=== PATIENT | male | born 1970 | race Caucasian/White ===

== ENCOUNTER → 2018-10-12 | Outpatient (CLI) | payer OTHER ==
--- NOTE | ~2018-10-12 | PFR/MVV ---
[facility] [place] [address] PULMONARY FUNCTION MVV/REPORT Name: DANIEL RENAEG Room #: [facility].#: [id number] Admission: 10/12/18 Attend Phys: Juan Gamino MD Discharge: Date of : 74 Report #: [id number] THIS REPORT FOR: //name// >> SPIROMETRY: (BTPS) Height: in cm Weight: lbs kg Exam Date: PRE-RX POST-RX PRED BEST %PRED BEST %PRED %CHG FVC LITERS . . . . . . FEV1 LITERS . . . . . . FEV1/FVC % . . . . . . YOK56-25% L/Sec . . . . . . PEF L/SEC . . . . . . FEF50/FIF50 UNITLESS . . . . . . MVV L/Min . . . f 1/Min . . . >> LUNG VOLUMES: (BTPS) PRE-RX POST-RX PRED AVG %PRED AVG %PRED %CHG VC Liters . . . . . . TLC Liters . . . . . . RV Liters . . . . . . RV/TLC % . . . . . . FRC PL Liters . . . . . . FRC N2 Liters . . . . . . ERV Liters . . . . . . IC Liters . . . . . . >> DIFFUSION: DLCO ml/Min/mmHg . . . . . . DL Larisa ml/Min/mmHg . . . . . . DLCO/VA ml/Min/mmHg . . . . . . VA Liters . . . . . . COMMENTS: COMMENTS: >> RESISTANCE: [facility] [address] [place] [address] PULMONARY FUNCTION MVV/REPORT Name: SHANE RENAE Room #: SAGE SimsZackary#: [id number] Admission: 10/12/18 Attend Phys: Juan Gamino MD Discharge: Date of : 74 Report #: [id number] PRE-RX PRED AVG %PRED Raw Total cmH20/L/Sec . . . Raw Insp cmH20/L/Sec . . . Raw Exp cmH20/L/Sec . . . Raw cmH20/L/Sec . . . Gaw L/Sec/cmH20 . . . sRaw cmH20 Sec . . . sGaw l/cmH20 Sec . . . Vtq Liters . . . # = OUTSIDE 95% CONFIDENCE INTERVAL CALIBRATION: PRED: 3.00 ACTUAL: EXP 3.01 INSP 3.02 IPS-OL10 [facility]-- [id number] >> INTERPRETATION/IMPRESSION: CC: Juan Gamino FAM unknown ROSA PATRICIA SPIROMETRY: FEV1 is 3.59 liters (99%), FVC is 5.34 liters (111%), FEV1/FVC is 67%. Postbronchodilator therapy with no significant change. LUNG VOLUMES: Total lung capacity is 7.20 liters (109%). RV is 1.86 liters (90%). Diffusing capacity is 70%. IMPRESSION: Pulmonary function studies are consistent with a borderline mild obstructive airflow defect. Lung capacity and diffusing capacity are normal. By: Alfredo Dickerson MD /nt
== END ==
LOC: PUL 09:09
DX: R06.02 Shortness of breath (principal)